=== PATIENT | female | born 1980 | race Caucasian/White ===

== ENCOUNTER 2017-07-26 16:16 | Emergency (ER) | payer SELFPAY ==
[~2017-07-26] VITALS: Ht 167.6 cm; Wt 56.7 kg
[~2017-07-26 16:16] MED LIST: GABAPENTIN100 M1 PO; GABAPENTIN300 MG PO; HYDROCODONE1 TABLET PO; IBUPROFEN200 MG PO; LEVOTHYROXIN0.075 MG PO
--- OUTSIDE RECORDS SUMMARY | 2017-07-26 17:05 | External Medical Summary Rpt | CCD ---
Author Author [employer] Organization [employer] Address Unknown Phone Unavailable Purpose Continuity of Care Document - through 2016
--- OUTSIDE RECORDS SUMMARY | 2017-07-26 17:05 | External Medical Summary Rpt | CCD ---
Author Author KAR[facility] Address Unknown Phone Purpose Continuity of Care Document - through 2016
--- OUTSIDE RECORDS SUMMARY | 2017-07-26 17:06 | External Medical Summary Rpt | CCD ---
Demographics Preferred Language Telugu Marital Status Unknown Jew Affiliation Unknown Race Unknown Ethnic Group Unknown Author Author , KAREN JONES Address Unknown Phone Immunization Unable to retrieve immunization data due to connection failure with Immunization Registry. Please try again later.
--- OUTSIDE RECORDS SUMMARY | 2017-07-26 17:06 | External Medical Summary Rpt | CCD ---
Demographics Preferred Language Telugu Marital Status Unknown Evangelical Affiliation Unknown Race Unknown Ethnic Group Unknown Author Author , KAREN JONES Address Unknown Phone Immunization Unable to retrieve immunization data due to connection failure with Immunization Registry. Please try again later.
--- OUTSIDE RECORDS SUMMARY | 2017-07-26 17:06 | External Medical Summary Rpt ---
Author Author KAREN Grimm, KAREN Grimm Organization [employer] Address Unknown Phone Unavailable
[2017-07-26 17:13] LABS: LYMPH # 3.6 K/mm3 (0.7-4.5); LYMPH % 41.1 % (10-50.0)
[2017-07-26 17:14] LABS: HEMOGLOBIN 14.3 g/dL (12.2-16.2)
[2017-07-26] MEDS ORDERED: MONODOX100 MG PO (17:14)
--- NOTE | 2017-07-26 17:15 | Emergency Room Report ---
History of Present Illness Time Seen by [id number] Presenting Problem in Triage Pt arrived:Walked Presenting Problem:TICK BITE TO ABDOMEN, SMALL REDDENED AREA SURROUNDING AND MUSCLE STIFFNESS Onset of symptoms date/time:/ or onset unknown for:MEDICAL HX UNKNOWN Treatment Prior to Arrival: CORE MOUNTER Provided by: Sepsis Risk Assessment: Temp: 98.3 B/P: 135/75 MAP: 95 Pulse: 72 Resp: 18 Recent fever? N Clinical Suspician of Infection? Y Mental Status: 1 - Regular (Normal Baseline) Sepsis Risk:Low Sepsis Risk Have you (or family members/close friends) recently traveled outside the [place]? N If Yes, where/when: Have you had exposure to infectious disease within the past month? TB? Other? Specify: Patient removed tick from abdominal area two days ago and states removed entire tick including head. She has noted a little redness around the area. No fever. She is worried she has not seen her family doctor recently and isn't taking her medication for thyroid. She has no palpitations today but is very worried about the muscles around her abdominal area. No vomiting. ALLERGIES Coded Allergies: No Known Drug Allergies (07/26/17) Home Medications Active Scripts Gabapentin (Gabapentin 300MG) 300 MG PO TID #90 CAP Prov: 03/18/16 Reported Medications Levothyroxine Sodium 0.075 MG PO DAILY History Medical History General CAD? No Angina: No RI: No Hypertension? No Hyperlipidemia? No CHF? No DVT? No PE? No COPD? No Asthma? No Anemia? No GERD? No Gastric ulcers? No GI Bleed? No Hernia? No Thyroid Problems? No Hypothyroidism? Yes CVA? No Seizures? No Diabetes? No Insulin Dependent: No Insulin Pump: No Home FSBS? No Renal Insuffiency? No End Stage Renal Disease? No UTI? No Stones? No BPH? No GB Disease: No Nephritic Syndrome? No Asplenia? No Hepatitis? No Sickle Cell Disease? No Arthritis? No Migraines? No Cataracts? No Glaucoma? No MRSA? No HIV? No TB? No Anxiety? No Depression? No Cancer? No More? No Immunization Hx Ped.Immunizations UTD Yes DT/Tetanus Unknown Surgical Hx Previous Surgery?Y [employer]UBAL [employer] Hx LMP N/A Social History Smoking Hx Smoker: Unknown if Ever Smoked Tobacco: Yes Type N/A Packs/day 1 1/2 - 2 Packs Alcohol Alcohol: No Review of Systems All Other Systems Reviewed and Negative Constitutional denies see HPI Skin see HPI Physical Exam Vital Signs Vital Signs Date Time Temp Pulse Resp B/P Pulse O2 O2 Flow FiO2 Ox Delivery Rate 07/26 1645 98.3 72 18 135/75 99 General Appearance normal appearance, WD/WN, no apparent distress Neck normal inspection, supple, full range of motion Respiratory Status No: respiratory distress. Cardiovascular no peripheral edema Extremities normal range of motion, normal inspection Strength 5 Upper Ext (L), 5 Upper Ext (R), 5 Lower Ext (L), 5 Lower Ext (R) Neurologic alert, oriented x 3 (nonfocal, alert) Glascow Coma Scale Glascow Coma Scale Response Value EYE response: 4 Spontaneously 4 MOTOR response: 6 OBEYS 6 VERBAL response: 5 Oriented & Converses 5 Total 15 Skin intact, normal color, Pt with a four mm diameter area of well circumscribed erythema with small central scabbing, c/w mild reaction to tick bite. No fluctuance, no FB, no streaks, no drainage. NO target lesions noted. Musculature to abdominal wall is soft throughout. Medical Decision Making LABS/Meds/Orders Pt receiving controlled substance in ED? No Results/Orders Laboratory Tests 07/26/17 1644: Sodium Pending, Potassium Pending, Chloride Pending, Carbon Dioxide Pending, BUN Pending, Creatinine Pending, Estimated Creat Clear Pending, Estimated GFR (MDRD) Pending, Glucose Pending, Calcium Pending, Total Bilirubin Pending, AST Pending, ALT Pending, Alkaline Phosphatase Pending, Creatine Kinase Pending, CK-MB (CK-2) Rel Index Pending, CK and CKMB Interp Pending, Troponin I Pending, Total Protein Pending, Albumin Pending, Globulin Pending, Albumin/Globulin Ratio Pending, TSH Pending, Free T4 Index Pending, Thyroxine (T4) Pending, T3 Uptake Pending, WBC Pending, RBC Pending, Hgb Pending, Hct Pending, MCV Pending, RDW Pending, Plt Count Pending, Gran % Pending, Gran # Pending, Lymphocytes % Pending, Eosinophils % Pending, Basophils % Pending, Lymphocytes # Pending, Eosinophils # Pending, Basophils # Pending, PUBS MCHC Pending, MCH Pending Current Medication Orders Sig/Douglas Start time Last Medication Dose Route Stop Time Status Admin Diphtheria/Pertussis/ 0.5 ML ONCE ONE 07/26 1715 AC Tetanus Vacc IM 07/26 1716 Orders Procedure Date/time Status ELECTROCARDIOGRAM REQUEST 07/26 1650 Active THYROID PANEL 2 (WITH TSH) 07/26 1650 Active SERUM , QUAL 07/26 1650 Active CBC WITH AUTO DIFF 07/26 1650 Active CARDIAC ENZYMES 07/26 1650 Active CHEM 12 PROFILE 07/26 1650 Active Departure Departure Time of Disposition 1710 Disposition DC Home or Self Care(routine) Clinical Impression Primary Impression: Tick bite of abdominal wall Qualifiers: Encounter type: initial encounter Qualified Code: S30.861A - Insect bite (nonvenomous) of abdominal wall, initial encounter Condition STABLE Referrals Maria Isabel Bentley MD Additional Instructions Moist warm compresses; Rx Doxycycline, have Dr. Bentley recheck area in one to two days, and see him for any family medicine concerns or refills for your usual medications. Discharge Counseling Counseled pt/family regarding diagnosis, medications/RX, home care, follow up needs Prescriptions Current Visit Scripts DOXYCYCLINE MONOHYDRATE (Monodox) 100 MG PO BID #20 CAP ED Critical Care Critical Care No at 1714
[2017-07-26 17:26] LABS: BUN 13 mg/dL (7-18); FREE THYROXIN INDEX 4.2 ug/dl (5.93-13.13); GFR (ESTIMATED) 94 ML/MIN (59-)
[2017-07-26 17:33] VITALS: BP 135/75
== END 2017-07-26 17:47 | disposition home or self-care (01) ==
LOC: ER 16:16
PROVIDERS: Emergency Medicine
DX: S30.861A Insect bite (nonvenomous) of abdominal wall, initial encounter (principal); Z23 Encounter for immunization